=== PATIENT | female | born 1995 | race Caucasian/White ===

== ENCOUNTER 2017-04-18 19:38 | Emergency (ER) | payer OTHER ==
[~2017-04-18] VITALS: Ht 162.6 cm; Wt 51.8 kg
[2017-04-18 19:51] VITALS: TEMP 36.7; Ht 162.6 cm; Wt 51.8 kg
[2017-04-18] MEDS ORDERED: IBUP-1050 PO (20:37)
[2017-04-18] MEDS ORDERED: CHOL100027 PO (20:37)
[2017-04-18] MEDS ORDERED: ACETAMINOPHEN 500 MG TAB PO STA (20:46)
--- NOTE | 2017-04-18 21:19 | DIAGNOSTIC IMAGING REPORT ---
L-SPINE MIN 4 VIEWS ROUTINE HISTORY: Trauma. Pain. low back pain s/p fall from 6 feet landing on buttocks COMPARISON: None. FINDINGS: Mild compression deformity superior endplate L1. This radiographically is considered old. Mild concavity of the superior endplate. No displacement of the posterior margin of the vertebral body. All remaining components of the study are unremarkable. Bowel pattern is nonobstructive. An intrauterine device is in position. Appears to be an old fracture of the sacrococcygeal junction. No subluxation. Disc spaces are preserved. IMPRESSION: 1. No acute process. 2. Findings suggesting old healed fractures of the sacrococcygeal junction as well as a concave deformity superior endplate L1 also considered old by radiographic criteria The above report was generated using voice recognition software. It may contain grammatical, syntax or spelling errors. Electronically signed by: Josiah Sanabria M.D. 04/18/2017 9:18 PM Dictated Date/Time: 04/18/2017 9:16 PM
--- NOTE | 2017-04-18 21:45 | EMERGENCY ROOM VISIT NOTE ---
History First contact with patient: 20:23 Chief Complaint: FALL Stated Complaint: SEVERE LOWER BACK PAIN RESULTING FROM FALL History of Present Illness The patient is a 21 year old female who presents to the Emergency Room with complaints of a fall prior to arrival. The patient was climbing a wall falling backwards landing on her buttocks. The fall was approximately 6 feet. She landed on a 6 inch padded surface. She denies hitting her head. She is experiencing some low back pain radiating to the mid back. She has taken ibuprofen with good pain relief. No numbness or tingling. Denies saddle paresthesias. No urinary or bowel incontinence. No prior back injuries. Review of Systems 6 system review negative. Please see pertinent positives in the history of present illness section. Past Medical/Surgical History Otherwise healthy Social History Smoking Status: Never Smoker Marital Status: single Occupation Status: [employer] Current/Historical Medications Scheduled Cholecalciferol (Vitamin D 1000 Unit), 1,000 INTER.UNIT PO DAILY Ibuprofen (Advil), 400 MG PO PRN UD Physical Exam Vital Signs Date Time Temp Pulse Resp B/P (MAP) Pulse Ox O2 Delivery O2 Flow Rate FiO2 04/18/17 22:23 78 103/75 97 04/18/17 19:51 36.7 86 20 132/77 99 Room Air Physical Exam VITALS: Vitals are noted on the nurse's note and reviewed by myself. Vital signs stable. GENERAL: 21-year-old female, in no acute distress, nondiaphoretic, well- developed well-nourished. SKIN: The skin was without rashes, erythema, edema, or bruising. HEAD: Normocephalic atraumatic. NECK: Supple without nuchal rigidity. Cervical spine is nontender. No JVD. HEART: Regular rate and rhythm without murmurs gallops or rubs. LUNGS: Clear to auscultation bilaterally without wheezes, rales or rhonchi. No accessory muscle use. MUSCULOSKELETAL: No tenderness in the thoracic spinous processes or lumbar spinous processes. No muscle spasms in the paraspinous muscles. No tenderness over the SI joint. Negative straight leg test bilaterally. DP pulse +2 bilaterally. Strength 5/5 throughout. NEURO: Patient was alert and oriented to person place and time. Normal sensation to touch. No focal neurological deficits. Medical Decision & Procedures ER Provider Diagnostic Interpretation: CT lumbar spine IMPRESSION: 1. Mild concave deformity superior endplate L1. 2. Although the bulk of these finding appears to be old, there are outer margin nondisplaced cortical fractures indicative of a superimposed nondisplaced acute component. 3. This fracture is considered stable. Posterior elements intact. There is no compromise of the spinal canal. 4. The concavity at L1 again appears to be a combination of nondisplaced acute as well as a pre-existing concave deformity of the central aspect of the superior endplate of L1. 5. No evidence for subluxation or displacement. All remaining components of the study are unremarkable. The above report was generated using voice recognition software. It may contain grammatical, syntax or spelling errors. Electronically signed by: Josiah Sanabria M.D. 04/18/2017 10:04 PM Dictated Date/Time: 04/18/2017 10:00 PM The status of this report is Signed. Draft = Not yet reviewed or approved by Radiologist. Signed = Reviewed and approved by Radiologist. <AttendingPhy></AttendingPhy> <FamilyPhy>[facility]</FamilyPhy> <PrimaryPhy>[facility]</PrimaryPhy> <UnitNumber>[id number]</ UnitNumber> <VisitNumber>[id number]</VisitNumber> <PatientName>KARYNAALBERT</PatientName> <DateOfBirth>1995</DateOfBirth> <Location> [facility]</Location> <ServiceDate>04/18/17</ServiceDate> <MNE>ESINDI</MNE> < OrderingPhy>Svitlana Dawson PA-C</OrderingPhy> <OrderingPhyMNE>f rep ord dr paulino< /OrderingPhyMNE> <DictatingPhyMNE>f rep dict dr paulino</DictatingPhyMNE> <CCListMNE >f rep ct miloe</CCListMNE> <AdmittingPhyMNE>f pt admit dr paulino</AdmittingPhyMNE> < AttendingPhyMNE>f pt attend dr paulino</AttendingPhyMNE> L spine x-rays Patient Name: KARYNAALBERT RENE Unit Number: [id number] Dictated: 01/11/18 [id number] Transcribed: 04/18/172115 MS Printed Date/Time: [~ rep prt dt]/[~ rep prt tm] [~ rep ct labl] - [~ rep ct ivnm] [facility] Radiology Department BLANCHE Ling [id number] Dictated: 04/18/172115 Transcribed: 04/18/172115 MS Printed Date/Time: [~ rep prt dt]/[~ rep prt tm] [~ rep ct labl] - [~ rep ct ivnm] IMPRESSION: 1. No acute process. 2. Findings suggesting old healed fractures of the sacrococcygeal junction as well as a concave deformity superior endplate L1 also considered old by radiographic criteria The above report was generated using voice recognition software. It may contain grammatical, syntax or spelling errors. Electronically signed by: Josiah Sanabria M.D. 04/18/2017 9:18 PM Dictated Date/Time: 04/18/2017 9:16 PM The status of this report is Signed. Draft = Not yet reviewed or approved by Radiologist. Signed = Reviewed and approved by Radiologist. <AttendingPhy></AttendingPhy> <FamilyPhy>[facility]</FamilyPhy> <PrimaryPhy>[facility]</PrimaryPhy> <UnitNumber>[id number]</ UnitNumber> <VisitNumber>[id number]</VisitNumber> <PatientName>ALBERT TRONCOSO</PatientName> <DateOfBirth>1995</DateOfBirth> <Location> [facility]</Location> <ServiceDate>04/18/17</ServiceDate> <MNE>ESINDI</MNE> < OrderingPhy>Svitlana Dawson PA-C</OrderingPhy> <OrderingPhyMNE>f rep ord dr paulino< /OrderingPhyMNE> <DictatingPhyMNE>f rep dict dr paulino</DictatingPhyMNE> <CCListMNE >f rep ct mne</CCListMNE> <AdmittingPhyMNE>f pt admit dr paulino</AdmittingPhyMNE> < AttendingPhyMNE>f pt attend dr paulino</AttendingPhyMNE> <ConsultingPhyMNE>f pt consult dr paulino</ConsultingPhyMNE> <FamilyPhyMNE>f pt fam dr paulino</FamilyPhyMNE> <OtherPhyMNE>f pt other dr paulino</OtherPhyMNE> < PrimaryPhyMNE>f pt prim care dr paulino</PrimaryPhyMNE> <ReferringPhyMNE>f pt referring dr paulino</ReferringPhyMNE> Medications Administered Medications (Trade) Dose Ordered Sig/Len Route Start Time Stop Time Status Last Admin Dose Admin Acetaminophen (Tylenol Tab) 1,000 mg NOW STAT PO 04/18/17 20:46 04/18/17 20:47 DC 04/18/17 20:51 1,000 MG ED Course The patient was seen and examined She was medicated with Tylenol Imaging was performed and reviewed The patient was reassessed and resting comfortably. We discussed the results of her workup. She voiced understanding. Discharge instructions were reviewed, and she was discharged in good condition Medical Decision Differential diagnosis: Spine fracture, ligamentous injury, subluxation, spondylolisthesis, spondylosis, herniated disc, contusion, muscle spasm This patient is a 21-year-old female that presents to the emergency department complaining of low back pain after a fall. The fall was fairly significant-6 feet. However, she fell into a padded surface. On exam, I cannot elicit any tenderness over the spinous processes. She was neurovascularly intact. X-rays were obtained. There was a questionable old fracture at the sacrococcygeal junction in addition to L1. 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 I ordered a CT. This is consistent with an acute on chronic compression fracture at L1. The fracture is stable. There is no retropulsion. I believe she is stable to be discharged home with close follow-up with orthopedics. She is comfortable with this plan, and agrees to return to the emergency department with any new or worsening symptoms. This chart was completed in part utilizing [employer] Speech Voice Recognition software. Attempts were made to minimize the grammatical errors, random word insertions, pronoun errors and incomplete sentences. Any formal questions or concerns about the content, text or information contained within the body of this dictation should be directly addressed to the provider for clarification. Medication Reconcilliation Current Medication List: was personally reviewed by me Impression Primary Impression: Compression fracture Departure Information Dispostion Home / Self-Care Condition GOOD Referrals [facility] (PCP) Benigno Millan, DO Patient Instructions My [facility] Additional Instructions You were evaluated in the emergency department after a fall. It does appear that you have a fracture in your back. The following is the radiology report: 1. Mild concave deformity superior endplate L1. 2. Although the bulk of these finding appears to be old, there are outer margin nondisplaced cortical fractures indicative of a superimposed nondisplaced acute component. 3. This fracture is considered stable. Posterior elements intact. There is no compromise of the spinal canal. 4. The concavity at L1 again appears to be a combination of nondisplaced acute as well as a pre-existing concave deformity of the central aspect of the superior endplate of L1. 5. No evidence for subluxation or displacement. All remaining components of the study are unremarkable. Please rest. Apply ice for 20 minute intervals to the affected area. No strenuous activity until seen by orthopedics. Please call the orthopedic doctor in the morning for a follow-up appointment. Tylenol and ibuprofen as needed for pain Ibuprofen 800 mg and/or Tylenol 1000 mg every 8 hours. You may also alternate these medications for more effective pain relief: Ibuprofen --4 HRS--> Tylenol --4 HRS--> ibuprofen --4 HRS--> Tylenol .... Please do not hesitate to return to the emergency department with any new, worsening or concerning symptoms
--- NOTE | 2017-04-18 22:05 | DIAGNOSTIC IMAGING REPORT ---
LUMBAR SPINE WITHOUT CT DOSE: 581.31 mGy.cm HISTORY: Trauma. Pain. fall LBP ? new fx TECHNIQUE: Multiaxial CT images of the lumbar spine were performed and reformatted in the sagittal and coronal plane without the use of contrast. A dose lowering technique was utilized adhering to the principles of ALARA. COMPARISON: None FINDINGS: Normal alignment of the vertebral bodies. Mild concave deformity superior endplate L1. The bulk of this finding appears to be pre-existing although nondisplaced superimposed cortical fractures are present at the periphery of this region. The endplates suggests a pre-existing deformity of the superimposed nondisplaced cortical fracture component. There is a benign Schmorl's node at the inferior endplate of L1 considered to be an anatomic variation. No additional abnormalities are identified. The transverse and posterior elements are intact throughout. There is no defect of the posterior margin of the L1 vertebral body with alignment posteriorly unremarkable. There is no bony compromise of the spinal canal. There is no significant surrounding soft tissue edematous change. IMPRESSION: 1. Mild concave deformity superior endplate L1. 2. Although the bulk of these finding appears to be old, there are outer margin nondisplaced cortical fractures indicative of a superimposed nondisplaced acute component. 3. This fracture is considered stable. Posterior elements intact. There is no compromise of the spinal canal. 4. The concavity at L1 again appears to be a combination of nondisplaced acute as well as a pre-existing concave deformity of the central aspect of the superior endplate of L1. 5. No evidence for subluxation or displacement. All remaining components of the study are unremarkable. The above report was generated using voice recognition software. It may contain grammatical, syntax or spelling errors. Electronically signed by: Josiah Sanabria M.D. 04/18/2017 10:04 PM Dictated Date/Time: 04/18/2017 10:00 PM
[2017-04-18 22:23] VITALS: BP 103/75; PULSE 78; O2SAT 97
== END 2017-04-18 22:24 | disposition home or self-care (01) ==
LOC: C.EDB 19:40 → C.EDD 22:24
DX: S32.010A Wedge compression fracture of first lumbar vertebra, initial encounter for closed fracture (principal); W17.89XA Other fall from one level to another, initial encounter; Z79.899 Other long term (current) drug therapy